=== PATIENT | female | born 2000 | race Caucasian/White ===

== ENCOUNTER 2025-04-12 16:32 | Emergency (ER) | payer MEDICAID, OTHER ==
[~2025-04-12] VITALS: Ht 175.3 cm; Wt 54.5 kg
[2025-04-12 16:40] VITALS: BP 116/88; PULSE 95; RESP 15; O2SAT 96
[2025-04-12 17:39] LABS: ANION GAP 7 mmol/L (8-16); CALCIUM, TOTAL 9.5 mg/dL (8.8-10.5); CARBON DIOXIDE 30 mmol/L (22-29); CHLORIDE 103 mmol/L (98-107); CREATININE 0.84 mg/dL (0.60-1.30); GLOMERULAR FILTR. RATE CALC > 60 mL/min (>60); GLUCOSE,RANDOM 96 mg/dL (70-110); POTASSIUM 4.1 mmol/L (3.5-5.1); SODIUM SERUM 140 mmol/L (136-145); UREA NITROGEN, BLOOD 10 mg/dL (7-18)
[2025-04-12 17:42] LABS: BASOPHILS % (AUTO) 1.2 % (0.0-2.0); EOSINOPHILS % (AUTO) 3.2 % (1.0-6.0); HEMATOCRIT 35.2 % (36-46); HEMOGLOBIN 10.7 g/dL (12.0-16.0); LYMPHOCYTES # (AUTO) 1.4 K/uL (1.0-4.8); MEAN CORPUSCULAR HEMOGLOBIN 19.5 pg (26.0-34.0); MEAN CORPUSCULAR HGB CONC 30.4 G/dL (31.0-37.0); MEAN CORPUSCULAR VOLUME 64 fL (80-100); MONOCYTES # (AUTO) 0.4 K/uL (0.1-1.0); MONOCYTES % (AUTO) 7.9 % (2.0-9.0); NEUTROPHILS % (AUTO) 59.7 % (40.0-70.0); PLATELET COUNT (AUTO) 350 K/uL (150-450); RED BLOOD CELL COUNT(AUTO) 5.51 MIL/uL (4.00-5.20); RED CELL DISTRIBUTION WIDTH 18.2 % (11.5-14.5)
[2025-04-12 17:43] LABS: % IRON SATURATION 2.4 % (22-44)
[2025-04-12 18:12] LABS: RBC MORPHOLOGY COMMENT ABNORMAL RBC MORPH
[2025-04-12] MEDS: IRON SUCROSE COMPLEX 100 MG in SODIUM CHLORIDE 0.9% 100 ML IV ONE (18:12)
[2025-04-12] MEDS: ONDANSETRON HCL 4 MG/2 ML VIAL IVP ONE (18:56)
== END 2025-04-12 19:13 | disposition home or self-care (01) ==
LOC: EMS 16:32
DX: D50.9 Iron deficiency anemia, unspecified (principal); R06.9 Unspecified abnormalities of breathing; R53.83 Other fatigue; Z88.0 Allergy status to penicillin
CPT/HCPCS: 99283; 96374; 80048; 82728; 83540; 85025; 36415; 84466; 83550; J1756; 96360; J7050

== ENCOUNTER 2025-04-13 18:27 | Emergency (ER) | payer OTHER ==
[~2025-04-13] VITALS: Ht 175.3 cm; Wt 54.5 kg
[2025-04-13 18:33] VITALS: BP 106/77; PULSE 92; RESP 18; TEMP 98.9; O2SAT 99
[2025-04-13] MEDS: IRON SUCROSE COMPLEX 200 MG in SODIUM CHLORIDE 0.9% 100 ML IV ONE (18:59)
== END 2025-04-13 20:55 | disposition home or self-care (01) ==
LOC: EMS 18:27
DX: D64.89 Other specified anemias (principal); D50.9 Iron deficiency anemia, unspecified; R06.00 Dyspnea, unspecified; R53.83 Other fatigue; Z88.0 Allergy status to penicillin
CPT/HCPCS: 99283; 96374; J1756; J7050

== ENCOUNTER 2025-04-14 16:13 | Emergency (ER) | payer OTHER ==
[~2025-04-14] VITALS: Ht 175.3 cm; Wt 54.5 kg
[2025-04-14 16:15] VITALS: BP 116/84; PULSE 75; RESP 16; TEMP 98.3; O2SAT 99
[2025-04-14] MEDS: IRON SUCROSE COMPLEX 200 MG in SODIUM CHLORIDE 0.9% 100 ML IV ONE (17:30)
== END 2025-04-14 18:09 | disposition home or self-care (01) ==
LOC: EMS 16:13
DX: D50.9 Iron deficiency anemia, unspecified (principal); D64.89 Other specified anemias; R53.83 Other fatigue; R06.00 Dyspnea, unspecified; Z88.0 Allergy status to penicillin
CPT/HCPCS: 99283; 96374; J1756; J7050

== ENCOUNTER 2025-04-21 22:12 | Emergency (ER) | payer OTHER ==
[~2025-04-21] VITALS: Ht 175.3 cm; Wt 54.5 kg
[2025-04-21 22:19] VITALS: TEMP 97.8
[2025-04-21] MEDS: IRON SUCROSE COMPLEX 200 MG in SODIUM CHLORIDE 0.9% 100 ML IV ONE (23:15)
[2025-04-22 00:15] VITALS: BP 115/73; PULSE 77; RESP 15; O2SAT 98
== END 2025-04-22 00:16 | disposition home or self-care (01) ==
LOC: EMS 22:51
DX: D50.9 Iron deficiency anemia, unspecified (principal); Z88.0 Allergy status to penicillin; Z91.040 Latex allergy status
CPT/HCPCS: 99283; 96374; J1756; J7050

== ENCOUNTER 2025-04-22 22:06 | Emergency (ER) | payer OTHER ==
[~2025-04-22] VITALS: Ht 175.3 cm; Wt 54.5 kg
[2025-04-22 22:31] VITALS: BP 121/84; PULSE 72; RESP 16; TEMP 98.6; O2SAT 98
[2025-04-22] MEDS: IRON SUCROSE COMPLEX 200 MG in SODIUM CHLORIDE 0.9% 100 ML IV ONE (23:00)
== END 2025-04-22 23:25 | disposition home or self-care (01) ==
LOC: EMS 22:06
DX: D50.9 Iron deficiency anemia, unspecified (principal); R06.00 Dyspnea, unspecified; Z88.0 Allergy status to penicillin; Z91.040 Latex allergy status
CPT/HCPCS: 99283; 96374; J1756; J7050

== ENCOUNTER 2025-05-08 00:27 | Emergency (ER) | payer OTHER ==
[~2025-05-08] VITALS: Ht 175.3 cm; Wt 54.5 kg
[2025-05-08 00:36] VITALS: BP 122/88; PULSE 61; RESP 18; TEMP 97.9; O2SAT 100
[2025-05-08 01:23] LABS: BASOPHILS % (AUTO) 1.4 % (0.0-2.0); EOSINOPHILS % (AUTO) 3.9 % (1.0-6.0); HEMATOCRIT 38.8 % (36-46); HEMOGLOBIN 12.2 g/dL (12.0-16.0); LYMPHOCYTES # (AUTO) 1.9 K/uL (1.0-4.8); LYMPHOCYTES % (AUTO) 38.5 % (22.0-44.0); MEAN CORPUSCULAR HEMOGLOBIN 23.3 pg (26.0-34.0); MEAN CORPUSCULAR HGB CONC 31.5 G/dL (31.0-37.0); MEAN CORPUSCULAR VOLUME 74 fL (80-100); MONOCYTES # (AUTO) 0.5 K/uL (0.1-1.0); MONOCYTES % (AUTO) 9.5 % (2.0-9.0); NEUTROPHILS # (AUTO) 2.3 K/uL (1.8-7.7); NEUTROPHILS % (AUTO) 46.7 % (40.0-70.0); PLATELET COUNT (AUTO) 278 K/uL (150-450); RED BLOOD CELL COUNT(AUTO) 5.25 MIL/uL (4.00-5.20); RED CELL DISTRIBUTION WIDTH 28.3 % (11.5-14.5); WHITE BLOOD COUNT (AUTO) 4.9 K/uL (4.5-11.0)
[2025-05-08 01:32] LABS: % IRON SATURATION 17.7 % (22-44)
[2025-05-08 01:34] LABS: CHOL/HDL RATIO 2.5 (3.9-5.7)
== END 2025-05-08 03:03 | disposition home or self-care (01) ==
LOC: EMS 02:13
DX: D50.9 Iron deficiency anemia, unspecified (principal); R53.83 Other fatigue; E78.5 Hyperlipidemia, unspecified; Z88.0 Allergy status to penicillin; Z91.040 Latex allergy status
CPT/HCPCS: 80061; 82728; 83540; 83550; 84466; 85025; 99283

== ENCOUNTER 2025-06-18 22:58 | Emergency (ER) | payer OTHER ==
[~2025-06-18] VITALS: Ht 175.3 cm; Wt 53.2 kg
[2025-06-18 23:20] VITALS: BP 110/76; PULSE 76; RESP 17; TEMP 98.005280; O2SAT 100
[2025-06-18 23:30] LABS: PLATELET COUNT (AUTO) 239 K/uL (150-450); RED BLOOD CELL COUNT(AUTO) 5.09 MIL/uL (4.00-5.20); RED CELL DISTRIBUTION WIDTH 23.9 % (11.5-14.5); WHITE BLOOD COUNT (AUTO) 6.4 K/uL (4.5-11.0)
[2025-06-18] MEDS: RINGERS SOLUTION,LACTATED 1,000 ML IV ONE (23:32)
[2025-06-18 23:43] LABS: % IRON SATURATION 17.6 % (22-44); IRON, SERUM 54.0 mcg/dL (50-175)
[2025-06-18 23:57] LABS: RBC MORPHOLOGY COMMENT ABNORMAL RBC MORPH
== END 2025-06-19 01:30 | disposition home or self-care (01) ==
LOC: EMS 22:59
DX: R42 Dizziness and giddiness (principal); R53.83 Other fatigue; Z88.0 Allergy status to penicillin; Z91.040 Latex allergy status
CPT/HCPCS: 99283; 96360; 82728; 83540; 85025; 36415; 84466; 83550; J7120; J7030